=== PATIENT | male | born 1980 ===

== ENCOUNTER 2020-08-08 18:35 | Emergency (ER) ==
[2020-08-09 13:40] LABS: SARS-CoV-2 PCR by NAA Not Detected (NotDetected)
== END 2020-08-08 19:45 ==
LOC: MADERS 18:35
DX: R11.10 Vomiting, unspecified (principal); Z20.822 Contact with and (suspected) exposure to COVID-19; F17.210 Nicotine dependence, cigarettes, uncomplicated
CPT/HCPCS: 87635; 99283; U0003; U0005